=== PATIENT | female | born 1965 | race Caucasian/White ===

== ENCOUNTER 2017-06-16 15:54 | Emergency (ER) | payer OTHER ==
[~2017-06-16] VITALS: Ht 160 cm; Wt 105.2 kg
[2017-06-16 15:59] VITALS: BP 136/87
--- NOTE | 2017-06-16 16:29 | ED ANIMAL BITE/WOUND CHECK ---
History of Present Illness General Chief Complaint: Suture Removal/Wound Recheck Stated Complaint: SUTURE REMOVAL Source: patient, old records Exam Limitations: no limitations Vital Signs & Intake/Output Vital Signs & Intake/Output Vital Signs Date Time Temp Pulse Resp B/P B/P Pulse O2 O2 Flow FiO2 Mean Ox Delivery Rate 06/16 1559 98.6 87 18 136/87 98 Room Air Allergies Coded Allergies: Penicillins (Severe, ANGIODEMA 06/07/17) Triage Note: 51 YO FEMALE TO TRIAGE FOR SUTURE REMOVAL FROM R INDEX FINGER. PLACED LAST WEDNESDAY. Triage Nurses Notes Reviewed? yes Onset: Abrupt Duration: week(s): (1), better Timing: recent history Injury Environment: home Is Injury an Animal Bite? No Severity: mild Severity Numbers: 3 No Modifying Factors: none Associated Symptoms: denies HPI: 51-year-old female presents status post sustaining laceration injury to the right second finger one week ago requiring 4 sutures. She denies any, occasions no discharge or redness warmth or difficulty with range of motion of finger no fever no chills Past History Travel History Traveled to [place] past 21 day No Medical History Any Pertinent Medical History? 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 No Review of Systems Review of Systems Constitutional: Reports: see HPI. Comments Review of systems: See HPI, All other systems negative. Constitutional, no chills no fever HEENT: no sore throat no congestion Skin: no rashes, no change in skin Respiratory: no cough Muscle skeletal: No joint pain, no back pain, no neck pain, Heme/endocrine: No bruising Physical Exam Physical Exam General Appearance: well developed/nourished, no apparent distress, alert, awake Comments: Well-developed well-nourished patient in no apparent distress. HEENT: Atraumatic, extraocular motion intact Neck: Supple, FROM Back: FROM Respiratory: No respiratory distress. Patient speaking in full complete sentences. Extremities: [address] to the right second finger there is no surrounding erythema and induration fluctuance patient has full range of motion of finger, the rest of the head is atraumatic with full range of motion Neuro: awake, alert, and oriented to person, place and time. There were no obvious focal neurologic abnormalities. Skin: Warm & dry;No appreciable rash on exposed skin Psych: Mood affect normal, normal memory normal judgment. Progress Differential Diagnosis: cellulitis, joint infection, tenosysnovitis Plan of Care: 4 sutures removed in their entirety, No wound dehiscence. Patient tolerated procedure well discussed with the plan of care she feels comfortable plan Departure Departure Time of Disposition: 1644 Disposition: HOME OR SELF CARE Condition: Stable Clinical Impression Primary Impression: Visit for suture removal Referrals: Genny URIBE,Lizbeth (PCP/Family) Departure Forms: Customer Survey General Discharge Information
== END 2017-06-16 17:13 ==
LOC: ERH 15:54
DX: Z48.02 Encounter for removal of sutures (principal)